=== PATIENT | female | born 1990 | race Caucasian/White ===

== ENCOUNTER 2020-11-11 14:20 | Emergency (ER) | payer MEDICAID ==
--- NOTE | 2020-11-11 15:24 | EDM.PDOC ---
ED HPI GENERAL MEDICAL PROBLEM - General Chief Complaint: Eye Problems Stated Complaint: SWELLING IN LEFT EYE Time Seen by Provider: 11/11/20 15:05 Source of Information: Reports: Patient. Denies: Old Records History Limitations: Reports: No Limitations - History of Present Illness INITIAL COMMENTS - FREE TEXT/NARRATIVE: 29 yo female presents with a red R eye. She relates that she was stung by a bee in the lower eye lid about 2 weeks ago and after that her R eye started getting more red. There is no drainage. She says her vision with her glasses is just a little more blurry than usual. No photophobia. Recently moved to [place] from [place], [place]. Her primary care provider is in [place]. No itching. 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 Denies: Contact Lenses, Eye Discharge, Eye Pain Respiratory: Reports: No Symptoms Skin: Reports: No Symptoms Neurological: Reports: No Symptoms ED EXAM GENERAL W FULL EYE - Physical Exam Exam: See Below Exam Limited By: No Limitations General Appearance: Alert, WD/WN, No Apparent Distress Eye Exam: Right Eye: Conjunctival Injection, Bilateral Eye: EOMI, PERRL Eyelids: Bilateral: Normal Appearance Conjunctiva & Sclera: Right: Injected Extraocular Movements: Bilateral: Intact Pupillary Size: Bilateral: 3 mm Pupillary Reaction: Bilateral: Brisk Ears: Hearing Grossly Normal Nose: Normal Inspection, No Blood Throat/Mouth: Normal Inspection, Normal Lips, Normal Oropharynx, Normal Voice, No Airway Compromise Head: Atraumatic, Normocephalic Neck: Normal Inspection Respiratory/Chest: No Respiratory Distress Neurological: Alert, Oriented, CN II-XII Intact, Normal Cognition, No Motor/Sensory Deficits Psychiatric: Normal Affect, Normal Mood Skin Exam: Warm, Dry, Intact, Normal Color, No Rash Course - Vital Signs Last Recorded V/S: Last Vital Signs Temp 36.6 C 11/11/20 14:46 Pulse 92 11/11/20 14:46 Resp 14 11/11/20 14:46 BP 108/71 11/11/20 14:46 Pulse Ox 98 11/11/20 14:46 Departure - Departure Time of Disposition: 15:35 Disposition: Home, Self-Care 01 Condition: Good Clinical Impression: Episcleritis Qualifiers: Laterality: right Qualified Code(s): H15.101 - Unspecified episcleritis, right eye - Discharge Information *PRESCRIPTION DRUG MONITORING PROGRAM REVIEWED*: Not Applicable *COPY OF PRESCRIPTION DRUG MONITORING REPORT IN PATIENT OTIS: Not Applicable Instructions: Scleritis and Episcleritis Referrals: PCP,None [Primary Care Provider] - Additional Instructions: Use the prescribed eye drops as directed. Recheck with an eyewear manufacturing supervisor near you early in the week. Sepsis Event Note (ED) - Evaluation Sepsis Screening Result: No Definite Risk - Focused Exam Vital Signs: Vital Signs Temp Pulse Resp BP Pulse Ox 11/11/20 14:46 36.6 C 92 14 108/71 98
== END 2020-11-11 15:49 | disposition home or self-care (01) ==
LOC: JP.ED 14:20
DX: H15.101 Unspecified episcleritis, right eye (principal)
CPT/HCPCS: 99283